=== PATIENT | female | born 1980 | race Caucasian/White ===

== ENCOUNTER 2016-03-04 04:51 | Emergency (ER) | payer BC ==
[~2016-03-04] VITALS: Ht 160 cm; Wt 74.8 kg
[~2016-03-04 04:51] MED LIST: DOCU100C8 PO; FERR325T36 PO; IBUP-1772 PO; LANO28OI TOP; OXYC1TAB87 PO; PNV11TAB PO
[2016-03-04] MEDS ORDERED: SODIUM CHLORIDE 250 ML IV PRN (05:15)
[2016-03-04] MEDS ORDERED: ONDANSETRON 2 MG/ML (Z0FRAN) 2 ML VIAL IV ONE (05:15)
[2016-03-04] MEDS ORDERED: SODIUM CHLORIDE FLUSH 10 ML SYR IV PRN (05:15)
[2016-03-04] MEDS ORDERED: GI COCKTAIL 55 ML UDC PO ONE (05:15)
[2016-03-04] MEDS ORDERED: SODIUM CHLORIDE FLUSH 3 ML SYR IV PRN (05:15)
[2016-03-04 05:23] VITALS: BP 134/99
[2016-03-04 05:30] LABS: BASOPHILS % (AUTO) 1 % (0-2); EOSINOPHILS # (AUTO) 0.1 10^3uL; EOSINOPHILS % (AUTO) 1 % (0-4); LYMPHOCYTES # (AUTO) 3.9 X10^3; MEAN CORPUSCULAR HEMOGLOBIN 29.1 PG (26.0-34.0); MEAN CORPUSCULAR HGB CONC 34.8 g/dL (31.0-37.0); MEAN CORPUSCULAR VOLUME 84 FL (80-100); MONOCYTES % (AUTO) 9 % (3-11); NEUTROPHILS # (AUTO) 5.9 X10^3; NEUTROPHILS % (AUTO) 53 % (51-67); PLATELET COUNT 227 10^3uL (150-450); WHITE BLOOD COUNT 11.04 10^3uL (4.0-11.0)
[2016-03-04] MEDS ORDERED: BELLADONNA/PHENOBARBITAL ELIXIR (DONNATAL) 10 ML UDC ONE (05:42)
[2016-03-04] MEDS ORDERED: LIDOCAINE 2% VISCOUS 20ML UDC PO ONE (05:42)
[2016-03-04] MEDS ORDERED: MAG HYDROX/AL HYDROX/SIMETH 400-400-40/5 ML (MAG-AL PLUS XS) 30 ML UDC ONE (05:42)
--- NOTE | 2016-03-04 05:47 | NUR ---
Pt vomited. States that the pain decreased after that. But increased when sitting up for chest xray. Pain still sternal and back.
[2016-03-04] MEDS ORDERED: KETOROLAC 30 MG/ML (TORADOL) 1 ML VIAL IV ONE (06:15)
--- NOTE | 2016-03-04 06:23 | NUR ---
RADIOLOGY WAS NOTIFIED THAT DR BURGOS ORDERED AN US FIRST THING IN AM.
[2016-03-04 06:32] LABS: ALBUMIN 4.4 g/dL (3.4-5.0); ALKALINE PHOSPHATASE 99 U/L (38-126); ANION GAP 21.3 MEQ/L (3-15); BUN/CREATININE RATIO 18 (10-20); CALCULATED IONIZED CALCIUM 4.1 mg/dL (3.8-4.6); CREATINE KINASE 53 U/L (30-135); LIPASE* 200 U/L (23-300); MAGNESIUM* 2.1 mg/dL (1.6-2.3); TOTAL PROTEIN 7.7 g/dL (6.4-8.5)
[2016-03-04 07:42] LABS: BILIRUBIN,URINE Negative (Negative); CLARITY,URINE Clear; GLUCOSE, URINE (UA) Negative (Negative); LEUKOCYTE ESTERASE ,URINE Negative (Negative); UROBILINOGEN,URINE 0.2 mg/dL (0.2-1.0)
[2016-03-04 07:45] LABS: COLOR,URINE Light Yellow
--- NOTE | 2016-03-04 08:55 | Diagnostic Imaging Report ---
INDICATION: Chest pain. TECHNIQUE: Single view chest 5:41 AM. CORRELATION STUDY: None FINDINGS: There is limited, suboptimal depth of inspiration. Given this, heart size, mediastinum, and vasculature appearing unremarkable. The lungs are clear with no consolidating infiltrate. There is no significant effusion or pneumothorax. IMPRESSION: 1. Negative portable chest with suboptimal depth of inspiration. Dictated by: Dictated on workstation # [id number]
--- NOTE | 2016-03-04 08:58 | Diagnostic Imaging Report ---
PROCEDURE: US Gallbladder. INDICATION: Two months . Mid abdominal and back pain. TECHNIQUE: Multiple grayscale sonographic images were obtained of the right upper quadrant of the abdomen. CORRELATION STUDY: None FINDINGS: LIVER: The liver measures 19 cm. There is uniform echotexture. GALLBLADDER: Gallbladder is present and does appear to be somewhat elongated and contains simple mobile gallstones. Silva's sign reported as negative. COMMON BILE DUCT: Within normal limits at 4 mm. RIGHT KIDNEY: Measures 10.1 cm. No hydronephrosis. PANCREAS: Visualized portions appearing unremarkable. OTHER: None. IMPRESSION: 1. Cholelithiasis without evidence for bile duct dilatation. Gallbladder does appear to be mildly distended as well. Dictated by: Dictated on workstation # [id number]
== END 2016-03-04 07:53 | disposition home or self-care (01) ==
LOC: ED 04:52
DX: R10.13 Epigastric pain (principal); K80.20 Calculus of gallbladder without cholecystitis without obstruction
CPT/HCPCS: 36415; 71010; 76705; 80053; 81003; 82550; 82553; 83690; 83735; 84484; 85025; 93005; 96361; 96374; 96375; 99285; J1885; J2405; J7030; 93010; 99284

== ENCOUNTER 2016-03-17 07:19 | Day surgery (SDC) | payer BC ==
[2016-03-17] VITALS (9 sets, daily range): BP systolic 129–147; BP diastolic 78–100
[~2016-03-17] VITALS: Ht 160 cm; Wt 71.0 kg
[~2016-03-17 07:19] MED LIST changes: +BUPIVACAINE/EPINEPHRINE 0.5%-1:200,000 (MARCAINE) 30 ML VIAL INJ ONE; -DOCU100C8 PO; -FERR325T36 PO; -IBUP-1772 PO; +LACTATED RINGERS 1,000 ML IV SCH; -LANO28OI TOP; -OXYC1TAB87 PO; -PNV11TAB PO; +SODIUM CHLORIDE FLUSH 3 ML SYR IV PRN
[2016-03-17] MEDS ORDERED: ROCURONIUM 50 MG/5 ML (ZEMURON) VIAL IV ONE (08:35)
[2016-03-17] MEDS ORDERED: ALFENTANIL 1,000 MCG/2 ML AMP IV ONE (08:35)
[2016-03-17] MEDS ORDERED: PROPOFOL 20 ML IV ONE (08:35)
[2016-03-17] MEDS ORDERED: KETOROLAC 60 MG/2 ML (TORADOL) VIAL IM ONE (09:43)
[2016-03-17] MEDS ORDERED: ONDANSETRON 2 MG/ML (Z0FRAN) 2 ML VIAL ONE (10:05)
[2016-03-17] MEDS ORDERED: METOCLOPRAMIDE 10 MG/2 ML (REGLAN) VIAL IV PRN (10:56)
[2016-03-17] MEDS ORDERED: KETOROLAC 30 MG/ML (TORADOL) 1 ML VIAL IV PRN (10:56)
[2016-03-17] MEDS ORDERED: ONDANSETRON 2 MG/ML (Z0FRAN) 2 ML VIAL IV PRN (10:56)
[2016-03-17] MEDS ORDERED: morphine INJ 4 MG/ML 1 ML SYRINGE IV PRN (10:56)
--- NOTE | 2016-03-17 11:15 | NUR ---
1030 reports received from Reece BOLANOS 1040 pt arrived at room 224 via cot; pt reports pain of 6-7 and nausea; transferred via slide to OB bed. Medication orders phoned to pharmacy. Reglan and Torodol administered via IV per order. 1115 Bed cisneros placed per pt request.
--- NOTE | 2016-03-17 11:39 | NUR ---
1130 pt reports pain is a 4. She has no nausea at this time.
--- NOTE | 2016-03-17 14:04 | NUR ---
1325 Pt discharged in good condition. pt ambulated, accompanied by and staffing rn, out of the OB unit to the front entrance of the hospital where the pt left with her via private vehicle.
== END 2016-03-17 13:25 | disposition home or self-care (01) ==
LOC: ASC 07:19
PROVIDERS: ATTEND Surgery
DX: K80.10 Calculus of gallbladder with chronic cholecystitis without obstruction (principal)
CPT/HCPCS: 47563; 74300; J1885; J2765; J7120